=== PATIENT | male | born 1995 | race Caucasian/White ===

== ENCOUNTER 2018-12-24 15:33 | Emergency (ER) | payer OTHER ==
[~2018-12-24] VITALS: Ht 175.3 cm; Wt 183.3 kg
[2018-12-24] MEDS ORDERED: PANADOL EXTRA500 MG (16:42)
== END 2018-12-24 20:36 | disposition home or self-care (01) ==
LOC: ER 15:33
DX: B34.9 Viral infection, unspecified (principal)

== ENCOUNTER 2022-05-14 00:31 | Emergency (ER) | payer OTHER ==
[~2022-05-14] VITALS: Ht 175.3 cm; Wt 174.6 kg
[~2022-05-14 00:31] MED LIST: PANADOL EXTRA500 MG
[2022-05-14] MEDS ORDERED: KETO10TA2 PO (02:24)
[2022-05-14] MEDS ORDERED: ORPHENADRINE C100 MG PO (02:26)
== END 2022-05-14 02:42 ==
LOC: ER 00:31
DX: S13.4XXA Sprain of ligaments of cervical spine, initial encounter (principal); V43.62XA Car passenger injured in collision with other type car in traffic accident, initial encounter; Y93.89 Activity, other specified; Y92.413 State road as the place of occurrence of the external cause; S89.92XA Unspecified injury of left lower leg, initial encounter

== ENCOUNTER 2022-06-15 16:40 | Emergency (ER) | payer OTHER ==
[~2022-06-15] VITALS: Ht 175.3 cm; Wt 172.4 kg
[~2022-06-15 16:40] MED LIST changes: +KETO10TA2 PO; +ORPHENADRINE C100 MG PO
== END 2022-06-15 18:34 | disposition home or self-care (01) ==
LOC: ER 16:40
DX: L03.116 Cellulitis of left lower limb (principal)